=== PATIENT | male | born 1945 | race Caucasian/White ===

== ENCOUNTER 2021-04-24 13:41 | Outpatient (CLI) | payer MEDICARE ==
[2021-04-24 15:08] LABS: #Basophils 0.1 10x3/uL (0.0-0.2); #Eosinphils 0.4 10x3/uL (0.0-0.5); #Monocytes 0.6 10x3/uL (0.0-1.1); #Neutrophils 4.7 10x3/uL (1.5-8.4); %Basophils 1.2 % (0.0-2.0); %Lymphocytes 22.9 % (18.0-47.0); %Monocytes 7.7 % (0.0-10.0); %Neutrophils 62.5 % (40.0-75.0); Hemoglobin 14.3 g/dL (13.5-17.5); Mean Corpuscular HGB CONC 33.7 g/dL (32.0-36.0); Mean Corpuscular Hemoglobin 30.8 pg (27.0-33.0); Mean Corpuscular Volume 91.2 fl (81.2-95.1); Mean Platelet Volume 10.7 fl (7.4-10.4); Platelet Count 203 10x3/uL (150-450); RBC Distribution Width 12.7 % (11.5-14.5); Red Blood Cell (RBC) Count 4.65 10x6/uL (4.32-5.72); White Blood Cell (WBC) Count 7.5 10x3/uL (3.5-10.5)
[2021-04-24 15:54] LABS: ALT (SGPT) 21 U/L (8-55); AST (SGOT) 22 U/L (5-34); Albumin 4.3 g/dL (3.4-4.8); Alkaline Phosphatase 64 U/L (40-110); Anion Gap 15 mmol/L (10-20); BUN (Urea Nitrogen) 16 mg/dL (8.4-25.7); Bilirubin, Total 1.4 mg/dL (0.2-1.2); Calc. Creatinine Clearance 0 mL/min (70-130); Carbon Dioxide 25 mmol/L (23-31); Chloride 108 mmol/L (98-107); Globulin 2.8 g/dL (2.4-3.5); Glucose 82 mg/dL (83-110); Potassium 4.4 mmol/L (3.5-5.1); Protein, Total 7.1 g/dL (5.8-8.1); Sodium 144 mmol/L (136-145)
[2021-04-25 13:28] LABS: SARS-CoV-2 PCR by NAA Not Detected (NotDetected)
== END 2021-04-24 13:42 | disposition home or self-care (01) ==
LOC: LABBT 13:41
PROVIDERS: ATTEND Internal Medicine Cardiovascular Disease
DX: Z01.812 Encounter for preprocedural laboratory examination (principal); I47.2 Ventricular tachycardia; Z20.822 Contact with and (suspected) exposure to COVID-19
CPT/HCPCS: 80053; 85025; U0003; U0005

== ENCOUNTER 2021-04-27 09:51 | Day surgery (SDC) | payer MEDICARE, BC ==
[2021-04-26 12:11] VITALS: BMI 23.1
[2021-04-27] MEDS ORDERED: Lidocaine 1% (PF) 30 ML VIAL ONE (09:58)
[2021-04-27 11:25] LABS: Cardiac Risk 3.1 (Less than 4.5)
[2021-04-27] MEDS ORDERED: Adenosine 6 MG/2 ML VIAL ONE (11:43)
[2021-04-27] MEDS ORDERED: Verapamil 5 MG/2 ML VIAL ONE (11:43)
[2021-04-27] MEDS ORDERED: Heparin 10,000 UNITS/ 10 ML VIAL ONE (11:43)
[2021-04-27] MEDS ORDERED: Nitroglycerin 100MG/250ML BOT 250 ML ONE (11:43)
[2021-04-27] MEDS ORDERED: Midazolam HCl 2 mg/2 ml Vial ONE (12:27)
[2021-04-27] MEDS ORDERED: Fentanyl 100 MCG/2 ML VIAL ONE (12:27)
== END 2021-04-27 16:24 | disposition home or self-care (01) ==
LOC: CCL 09:51
PROVIDERS: ATTEND Internal Medicine Cardiovascular Disease
PROC: 4A023N7 Measurement of Cardiac Sampling and Pressure, Left Heart, Percutaneous Approach (ICD-10-PCS; principal; 2021-04-27)
PROC: B2111ZZ Fluoroscopy of Multiple Coronary Arteries using Low Osmolar Contrast (ICD-10-PCS; 2021-04-27)
DX: I47.2 Ventricular tachycardia (principal); I25.10 Atherosclerotic heart disease of native coronary artery without angina pectoris; I73.9 Peripheral vascular disease, unspecified; I10 Essential (primary) hypertension; E78.5 Hyperlipidemia, unspecified; Z87.891 Personal history of nicotine dependence; Z79.82 Long term (current) use of aspirin; Z79.899 Other long term (current) drug therapy
CPT/HCPCS: 80061; 93458; 99152; J0153; J1644; J2001; J2250; J3010

== ENCOUNTER 2024-05-12 12:34 | Outpatient (CLI) | payer MEDICARE, BC | END 2024-05-12 12:35 | disposition home or self-care (01) | LOC: RAD 12:34 | PROVIDERS: ATTEND Internal Medicine | DX: C43.22 Malignant melanoma of left ear and external auricular canal (principal); Z95.0 Presence of cardiac pacemaker | CPT/HCPCS: 71046 ==

== ENCOUNTER 2024-05-14 10:15 | Outpatient (CLI) | payer MEDICARE, BC | END 2024-05-14 10:16 | disposition home or self-care (01) | LOC: PET 10:15 | PROVIDERS: ATTEND Internal Medicine | DX: C43.22 Malignant melanoma of left ear and external auricular canal (principal); C77.0 Secondary and unspecified malignant neoplasm of lymph nodes of head, face and neck | CPT/HCPCS: 78816; A9552 ==

== ENCOUNTER 2024-05-25 09:20 | Outpatient (CLI) | payer MEDICARE, BC ==
[2024-05-25] MEDS ORDERED: Magnevist 469MG/ML 20 ML VIAL ONE (13:32)
== END 2024-05-25 09:21 | disposition home or self-care (01) ==
LOC: MRI 09:20
PROVIDERS: ATTEND Internal Medicine
DX: C43.22 Malignant melanoma of left ear and external auricular canal (principal); G93.0 Cerebral cysts; G31.9 Degenerative disease of nervous system, unspecified; R90.82 White matter disease, unspecified; I67.82 Cerebral ischemia
CPT/HCPCS: 70553; 76376

== ENCOUNTER 2025-01-20 09:04 | Outpatient (CLI) | payer MEDICARE, BC ==
[2025-01-20 09:43] LABS: Estimated GFR - POC 69.0
[2025-01-20] MEDS ORDERED: Iopamidol 370 76% 100 ML VIAL ONE (15:23)
== END 2025-01-20 09:05 | disposition home or self-care (01) ==
LOC: CT 09:04
PROVIDERS: ATTEND Internal Medicine
DX: C43.22 Malignant melanoma of left ear and external auricular canal (principal); J43.2 Centrilobular emphysema; J98.4 Other disorders of lung
CPT/HCPCS: 36415; 71260; 82565; Q9967